=== PATIENT | female | born 1975 | race Two or more races ===

== ENCOUNTER 2018-05-02 09:10 | Emergency (ER) | payer OTHER ==
[2018-05-02 09:25] VITALS: BP 133/64
--- NOTE | 2018-05-02 09:36 | ED Physician Documentation ---
PD HPI HEENT - Stated complaint Stated Complaint: EAR ACHE - Chief complaint Chief Complaint: Heent - History obtained from History obtained from: Patient - Additional information Additional information: 42-year-old female presents the emergency department with bilateral ear pain, sore throat and URI symptoms. The patient's cold symptoms started several days ago and this morning the patient woke up with bilateral ear pain. The patient took Motrin and now her symptoms are improving. No reports of fevers. Symptoms are described as mild. No other associated symptoms. Review of Systems Constitutional: denies: Fever, Chills Eyes: denies: Discharge Ears: reports: Ear pain Nose: reports: Rhinorrhea / runny nose Throat: reports: Sore throat Cardiac: denies: Chest pain / pressure Respiratory: denies: Cough GI: denies: Abdominal Pain : denies: Dysuria PD PAST MEDICAL HISTORY - Present Medications Home Medications: Ambulatory Orders Medication Instructions Recorded Confirmed Pseudoephedrine HCl [Sudafed 12 120 mg PO BID PRN #30 tablet.er 05/02/18 Hour] - Allergies Allergies/Adverse Reactions: Allergies Allergy/AdvReac Type Severity Reaction Status Date / Time No Known Drug Allergies Allergy Verified 05/02/18 09:23 PD ED PE NORMAL - General General: Alert and oriented X 3, No acute distress - HEENT HEENT: Atraumatic, PERRL, EOMI - Cardiac Cardiac: RRR - Respiratory Respiratory: No respiratory distress - Derm Derm: Normal color - Extremities Extremities: No deformity - Neuro Neuro: Alert and oriented X 3, Normal speech - Psych Psych: Normal affect PD ED PE EXPANDED - HEENT HEENT: Atraumatic, Head injury, Ears normal, Rhinorrhea, Pharynx normal. No: R TM red, R TM dull, R TM bulging, R TM retracted, R TM loss of landmarks, L TM red, L TM dull, L TM bulging, L TM retracted, L TM loss of landmarks, Pharyngeal erythema, Swollen tonsils, Tonsillar exudate Results - Vitals Vitals: Vital Signs - 24 hr 05/02/18 09:23 Temperature 36.4 C L Heart Rate 89 Respiratory 16 Rate Blood Pressure 133/64 H O2 Saturation 100 Oxygen O2 Source Room air PD MEDICAL DECISION MAKING - ED course ED course: There is no clinical evidence of acute otitis media, the patient's symptoms seem to represent a viral etiology and the patient appears appropriate for outpatient management with symptomatic treatment. I discussed the findings and plan with the patient who understands and agrees. I discussed warning signs and recommended returning to the emergency department immediately for any worsening or any concerns. Departure - Departure Disposition: Home, Self Care Clinical Impression: Otalgia of both ears, Viral URI Condition: Good Instructions: ED URI Viral Follow-Up: RADHA HAYWOOD MD [Primary Care Provider] - Within 1 week Prescriptions: Pseudoephedrine HCl [Sudafed 12 Hour] 120 mg PO BID PRN #30 tablet.er PRN Reason: Cold Symptons Comments: Please follow-up with primary care in 1 week. Please return to the emergency department for worsening symptoms or any concerns
== END 2018-05-02 09:43 | disposition home or self-care (01) ==
LOC: ED 09:10
DX: H92.03 Otalgia, bilateral (principal); J06.9 Acute upper respiratory infection, unspecified; B97.89 Other viral agents as the cause of diseases classified elsewhere
CPT/HCPCS: 99282; 99283

== ENCOUNTER 2018-09-02 03:06 | Emergency (ER) | payer OTHER ==
[2018-09-02 03:17] VITALS: BP 137/86
--- NOTE | 2018-09-02 03:35 | ED Physician Documentation ---
PD HPI HEENT - Stated complaint Stated Complaint: EAR PX - Chief complaint Chief Complaint: Heent - History obtained from History obtained from: Patient - History of Present Illness Timing - onset: Yesterday Timing - details: Gradual onset, Constant, Waxing and waning Pain level now: 8 Location: Right ear Improves: Nothing Worsens: Position Associated symptoms: Fever (had chills, sweats, and fever Tmax 103 past several days, but resolved yesterday as the ear pain started) Similar symptoms before: Has not had sx before Recently seen: Not recently seen Review of Systems Constitutional: reports: Fever (past several days but no fever for past 24 hours), Chills, Sweats Ears: reports: Ear pain Throat: denies: Sore throat PD PAST MEDICAL HISTORY - Past Medical History Past Medical History: No - Past Surgical History Past Surgical History: No - Present Medications Home Medications: Ambulatory Orders Medication Instructions Recorded Confirmed Amox/Clav 875/125 [Augmentin] 1 each PO Q12H #14 tablet 09/02/18 HYDROcod/ACETAM 5/325 [[place] 5/325] 1 - 2 ea PO Q6H PRN #15 tablet 09/02/18 - Allergies Allergies/Adverse Reactions: Allergies Allergy/AdvReac Type Severity Reaction Status Date / Time No Known Drug Allergies Allergy Verified 09/02/18 03:17 - Social History Does the pt smoke?: No Smoking Status: Never smoker Does the pt drink ETOH?: No Does the pt have substance abuse?: No - Immunizations Immunizations are current?: Yes PD ED PE NORMAL - Vitals Vital signs reviewed: Yes - General General: Alert and oriented X 3, No acute distress, Well developed/nourished - Neck Neck: Supple, no meningeal sign PD ED PE EXPANDED - HEENT HEENT: R TM red, R TM bulging, R TM loss of landmarks, L TM red (mild erythema) Results - Vitals Vitals: Oxygen O2 Source Room air PD MEDICAL DECISION MAKING - ED course Complexity details: considered differential, d/w patient Departure - Departure Disposition: 01 Home, Self Care Clinical Impression: Otitis media Condition: Good Instructions: ED Otitis Media Acute Adult Follow-Up: RADHA HAYWOOD MD [Primary Care Provider] - Prescriptions: Amox/Clav 875/125 [Augmentin] 1 each PO Q12H #14 tablet HYDROcod/ACETAM 5/325 [[place] 5/325] 1 - 2 ea PO Q6H PRN #15 tablet PRN Reason: Pain Discharge Date/Time: 09/02/18 03:46
[2018-09-02] MEDS ORDERED: DEXAMETHASONE 10 MG/ML VIAL PO STA (03:36)
[2018-09-02] MEDS ORDERED: AMOX/CLAV 875 MG/125 MG TABLET PO STA (03:36)
[2018-09-02] MEDS ORDERED: HYDROcod/ACET 5/325 Prepack 4 PO STA (03:36)
[2018-09-02] MEDS ORDERED: CHERRY SYRUP 10 ML UDC PO ONE (03:43)
== END 2018-09-02 03:46 | disposition home or self-care (01) ==
LOC: ED 03:06
DX: H66.90 Otitis media, unspecified, unspecified ear (principal)
CPT/HCPCS: 99283; A9270

== ENCOUNTER 2018-10-09 07:35 | Outpatient (CLI) | payer OTHER ==
--- NOTE | 2018-10-09 10:33 | MRI Report ---
Reason: LESION OF ULNAR NERVE, RIGHT UPPER LIMB Procedure Date: 10/09/2018 Accession Number: [id number] / [id number] Procedure: MRI - Cervical Spine W/O CPT Code: FULL RESULT: EXAM: MRI CERVICAL SPINE WITHOUT CONTRAST EXAM DATE: 10/09/2018 07:52 AM. CLINICAL HISTORY: Lesion of ulnar nerve, right upper limb. COMPARISONS: None. TECHNIQUE: Multiplanar, multisequence T1-weighted and fluid-sensitive sequences of the cervical spine without contrast. Other: None. FINDINGS: Neurologic Structures: The visualized posterior fossa structures are unremarkable. No signal abnormality in the visualized spinal cord. Note, the cervical spinal canal is at the lower limits of normal in size. Alignment: No scoliosis or spondylolisthesis. Bone Marrow: No gross fractures or bone lesions. No marrow edema. Interspace Levels/Facets: C1-C2: Unremarkable on sagittal series. C2-C3: Mild broad-based dorsal disk bulge is seen. Focal dorsal and left dorsal lateral subligamentous disk protrusion is seen. Effacement and flattening of the thecal sac and spinal cord are seen slightly greater to the left of midline. Moderate canal stenosis. C3-C4: Minimal broad-based dorsal disk bulge is seen. Mild ventral disk bulge. Mild effacement of the ventral thecal sac is noted. Mild canal stenosis. C4-C5: Mild central dorsal subligamentous disk protrusion is seen. Anterior concavity to the thecal sac and spinal cord is noted. Mild canal stenosis. C5-C6: Broad-based dorsal subligamentous disk protrusion is seen. Central annular fissure is noted. Mild degenerative uncovertebral changes seen. Anterior concavity to the thecal sac and spinal cord is noted. Mild to moderate canal stenosis. Bilateral mild foraminal narrowing. C6-C7: Mild broad-based dorsal, lateral, and ventral circumferential disk bulge is seen. Effacement of the ventral thecal sac is noted without canal stenosis. Effacement of exiting left C7 nerve root is seen with mild foraminal stenosis. C7-T1: Unremarkable. Musculature: Normal. No edema or fatty atrophy. Other: The paravertebral and prevertebral soft tissues are normal. IMPRESSION: 1. The cervical spinal canal is at the lower limits of normal in size. Mild cervical spondylosis is seen with multilevel degenerative disk change. Associated multilevel stenosis is seen, including: -C2-C3: Moderate canal stenosis. -C3-C4, C4-C5: Mild canal stenosis. -C5-C6: Mild to moderate canal stenosis. Mild foraminal narrowing. -C6-C7: Mild left foraminal stenosis. 2. Normal appearance to the cervical spinal cord. RADIA
== END 2018-10-09 07:36 | disposition home or self-care (01) ==
LOC: DI 07:35
PROVIDERS: ATTEND Orthopaedic Surgery
DX: G56.21 Lesion of ulnar nerve, right upper limb (principal); M47.812 Spondylosis without myelopathy or radiculopathy, cervical region; M50.30 Other cervical disc degeneration, unspecified cervical region; M48.02 Spinal stenosis, cervical region
CPT/HCPCS: 72141

== ENCOUNTER 2018-11-28 08:38 | Day surgery (SDC) | payer OTHER ==
[2018-11-28] MEDS ORDERED: LACTATED RINGERS 1,000 ML IV ONE ×2 (08:49→13:33)
[2018-11-28] MEDS ORDERED: VANCOMYCIN INJ 1 GM, VANCOMYCIN INJ 250 MG in SODIUM CHLORIDE 0.9% 250 ML IV ONE (09:00)
[2018-11-28] MEDS ORDERED: CEFAZOLIN SODIUM IN 0.9 % NACL 2 GM/100 ML BAG IV ONE (09:24)
--- NOTE | 2018-11-28 09:31 | ANESTHESIA ---
Pre-Anesthesia VS, & Labs - Diagnosis R cubital tunnel syndrome - Procedure R ulnar nerve transposition, R CTR Vital Signs: Temp Pulse Resp BP Pulse Ox 36.3 C L 69 12 125/95 H 100 11/28/18 09:00 11/28/18 09:00 11/28/18 09:00 11/28/18 09:00 11/28/18 09:00 Height 5 ft Weight (kg) 80.3 kg Body Mass Index 34.3 - NPO >8 hours - Is Patient ?: No - Lab Results Lab results reviewed: Yes Home Medications and Allergies Active Medications Vancomycin HCl 1 gm/Vancomycin HCl 250 mg/ Sodium Chloride 250 mls @ 167 mls/hr IV ONCE ONE Stop: 11/28/18 10:29 No Known Home Medications 10/22/18 Allergies/Adverse Reactions: Allergies Allergy/AdvReac Type Severity Reaction Status Date / Time No Known Drug Allergies Allergy Verified 11/18/18 14:45 Anes History & Medical History - Anesthetic History Anesthesia Complications: reports: No previous complications Family history of Anesthesia Complications: Denies Family history of Malignant Hyperthermia: Denies - Medical History Cardiovascular: reports: Murmur Pulmonary: reports: None Gastrointestinal: reports: None Urinary: reports: None Neuro: reports: None Musculoskeletal: reports: Other Endocrine/Autoimmune: reports: None Blood Disorders: reports: None Skin: reports: None Smoking Status: Never smoker - Surgical History Gynecologic: section Orthopedic: Other Exam General: Alert, Oriented x3, Cooperative Dental: WNL Mouth Openin Fingerbreadth Neck Mobility: Normal Mallampati classification: II Thyromental Distance: 4-6 cm Respiratory: Lungs clear, Normal breath sounds Cardiovascular: Regular rate Neurological: Normal speech Mental/Cognitive Status: Alert/Oriented X3, Normal for patient Cognitive Status: Within normal limits Plan Anesthesia Type: General, Supraclavicular Block (possible if pt desires) Consent for Procedure(s) Verified and Reviewed: Yes Code Status: Attempt Resuscitation ASA classification: 2-Mild systemic disease Is this case an emergency?: No
[2018-11-28 09:47] LABS: HCG UR QUAL NEGATIVE
[2018-11-28] MEDS ORDERED: VANCOMYCIN INJ 1.25 GM in SODIUM CHLORIDE 0.9% 250 ML IV ONE (09:55)
[2018-11-28] MEDS ORDERED: BUPIVACAINE 0.25% PF 30 ML VIAL ONE (10:48)
[2018-11-28] MEDS ORDERED: BUPIVACAINE 0.25% PF 30 ML VIAL SUBQ ONE ×2 (11:49→15:37)
[2018-11-28] MEDS ORDERED: DEXAMETHASONE 4 MG/ML VIAL IVP ONE (13:15)
[2018-11-28] MEDS ORDERED: ACETAMINOPHEN 1,000 MG/100 ML 100 ML IV ONE (13:15)
[2018-11-28] MEDS ORDERED: LIDOCAINE-MPF 2% 5 ML VIAL IM ONE (13:15)
[2018-11-28] MEDS ORDERED: fentaNYL 100 MCG/2 ML VIAL IVP ONE (13:15)
[2018-11-28] MEDS ORDERED: PROPOFOL 200 MG/20 ML VIAL IVP ONE (13:15)
[2018-11-28] MEDS ORDERED: ONDANSETRON 4 MG/2 ML VIAL IVP ONE (13:15)
[2018-11-28] MEDS ORDERED: MIDAZOLAM 2 MG/2 ML VIAL IVP ONE (13:15)
[2018-11-28] MEDS ORDERED: KETOROLAC 30 MG/ML VIAL IVP ONE (13:15)
--- NOTE | 2018-11-28 14:36 | XRAY Report ---
Reason: Pre-op EVAL Procedure Date: 11/28/2018 Accession Number: [id number] / [id number] Procedure: XR - Elbow 3 View RT CPT Code: FULL RESULT: EXAM: RIGHT ELBOW RADIOGRAPHY EXAM DATE: 11/28/2018 09:24 AM. CLINICAL HISTORY: Pre-op EVAL. COMPARISON: None. TECHNIQUE: 3 views. FINDINGS: Bones: Normal. No fractures or bone lesions. Joints: Normal. No effusion. No subluxation. Soft Tissues: Normal. No soft tissue swelling. IMPRESSION: Normal elbow radiography. RADIA
--- NOTE | 2018-11-28 14:40 | XRAY Report ---
Reason: Pre-op eval Procedure Date: 11/28/2018 Accession Number: [id number] / [id number] Procedure: XR - Wrist 3 View RT CPT Code: FULL RESULT: EXAM: RIGHT WRIST RADIOGRAPHY EXAM DATE: 11/28/2018 09:24 AM. CLINICAL HISTORY: Pre-op eval. COMPARISON: None. TECHNIQUE: 4 views. FINDINGS: Bones: Normal. No fractures or bone lesions. Joints: Normal. No subluxations. Soft Tissues: Normal. No soft tissue swelling. IMPRESSION: Normal wrist radiography. RADIA
[2018-11-28] MEDS ORDERED: ONDANSETRON 4 MG/2 ML VIAL IVP PRN (16:09)
[2018-11-28] MEDS ORDERED: oxyCODONE 5 MG TABLET PO PRN (16:09)
--- NOTE | 2018-11-28 16:22 | OPERATIVE REPORT ---
Operative Report - General Procedure Date: 11/28/18 Planned Procedure: Right open carpal tunnel Release, Right cubital tunnel decompression possible anterior transposition Pre-Op Diagnosis: Right carpal tunnel syndrome, right cubital tunnel syndrome Procedure Performed: Right open carpal tunnel release, right ulnar nerve decompression with anterior sub-cutaneous transposition Post Op Diagnosis: Right carpal tunnel syndrome, right cubital tunnel syndrome - Procedure Note Primary Surgeon: ELIZABETH HAWLEY Anesthesia Technique: General LMA - Other Other Information/Narrative: Tourniquet Time: 142 minutes at 250mmHg. Specimen(s) Information: None Complication(s): None Condition: Stable to recovery Indications for Surgery: The patient is a 43-year-old right hand dominant female with a greater than 1 year history of numbness and tingling into the right upper extremity. Her right hand and arm symptoms began sometime in 2016. She initially reported numbness and tingling to the ulnar 2 digits of the right hand, as well as the ulnar forearm. This slowly progressed to involve all 5 digits. An EMG/nerve conduction study was conducted in January 2018 and demonstrated moderate median nerve compression at the carpal tunnel without electrodiagnostic evidence of cubital tunnel syndrome. She underwent right carpal tunnel steroid injection, with good improvement in both the carpal tunnel as well as cubital tunnel symptoms. Her symptoms began to recur in the spring 2018, once again starting with the ulnar 2 digits primarily numbness and paresthesias from the elbow into the ulnar 2 digits, with later pain in the same distribution, and sensitivity at the medial elbow. Her long,index and thumb numbness also began to return. Clinical exam demonstrated perching/subluxation of the ulnar nerve with elbow flexion. She had a positive Tinel at the cubital tunnel and just proximal to it, and her symptoms were re-created quickly with elbow flexion. She also had a positive Tinel at the carpal tunnel, with numbness rapidly provoked with Phalen and Durkan testing. Cervical spine MRI obtained during work-up of her condition demonstrated multilevel degenerative changes, that likely contribute to a double crush phenomenon with her upper extremity symptoms. The patient was evaluated by spine surgery at my request. She had undergone periods of elbow splinting and physical therapy, as well as a right carpal tunnel steroid injection, with no durable benefit from any nonoperative modality. We had extensive discussions in clinic about treatment options for both cubital and carpal tunnel syndrome, namely: continued nonoperative treatment in the form of activity modification, splinting, elbow pad wear versus versus surgical release of the carpal tunnel as well as decompression of the ulnar nerve and anterior subcutaneous transposition. Risks of surgery were discussed to include bleeding, infection, postoperative elbow stiffness, failure to relieve symptoms, damage to nerves (including specifically the MABC, the ulnar nerve, the median nerve, the recurrent motor branch to the thenars), vessels, tendons, ligaments, bone and cartilage and anesthesia complications to include medication side effects and allergic reactions and, stroke heart attack and even . After discussion, they wished to proceed. A written consent was signed Findings: Thickened transverse carpal ligament. Unstable ulnar nerve at the cubital tunnel, flattening of the ulnar nerve at the cubital tunnel with slight hourglass configurations Descriptions of Procedure: The patient was met in the Preoperative Holding Area, at which time preoperative paperwork was confirmed. The right wrist and right elbow was signed. The patient was then brought to Main Operating Room, placed supine on the Operating Room table, at which time a pre procedure timeout was conducted to confirm correct patient, correct extremity and correct procedure and also to confirm presence and sterility of all required equipment and to confirm that antibiotics were being administered in the form of 2g of intravenous Ancef, given a history of prior MRSA soft tissue infection preoperative vancomycin was also administered approximately 1 hour prior to incision. After this was confirmed, general anesthesia was induced. The operative extremity was then prepped and draped over a hand table in the normal sterile fashion. A sterile well-padded tourniquet was placed on the proximal arm. A final timeout was conducted to confirm the correct patient, correct extremity and correct procedure and to confirm that antibiotics had been administered within 30 minutes of incision time. The operative extremity was then exsanguinated with an Esmarch bandage and tourniquet inflated to 250mmHg. Melendrez's cardinal line, the ulnar border of the flexed fourth digit, and the hook of hamate was marked on the hand. A 3cm longitudinal incision was made with a #15 blade through skin and subcutaneous tissue. Dissection was further carried out with tenotomy scissors. Small crossing vessels were coagulated with bipolar electrocautery, the palmar fascia was exposed, and split longitudinally in line with its fibers, the fat was retracted ulnarly, and the transverse carpal ligament was exposed. A 15 blade was used to make a small incision in the transverse carpal ligament, and then a small mosquito clamp was introduced directly deep to the ligament above the contents of the carpal tunnel to gently free off any adhesions between the deep surface of the transverse carpal ligament and the median nerve. Dissection was carried distally under direct visualization, releasing the transverse carpal ligament until the palmar fat was was visualized. Digital examination was performed to ensure that there were no remaining tight bands constricting the nerve. Attention was then turned proximally, and a Sawyer elevator was passed deep to the transverse carpal ligament and antebrachial fascia, and these were incised in line with the nerve approximately 2 cm proximal to the distal wrist crease. This was performed under direct visualization. Again digital examination of the proximal extent of the release was performed to ensure no tight bands or constrictive points remained over the nerve. Satisfied that the carpal tunnel had been completely released, the wound was irrigated, and packed with a wet Raytec. Attention was then turned to the ulnar nerve decompression. An approximately 14 cm longitudinal incision was made centered posterior to the tip of the medial epicondyle proceeding distally approximately 6 cm and proximally 8 cm in line with the course of the ulnar nerve. The skin and dermis were sharply incised, followed by blunt dissection with tenotomy scissors through through through the subcutaneous fat. Care was taken to identify any crossing branches of the medial antebrachial and brachial cutaneous nerve. Three branches were identified and protected. The incision was carried deep, and Austin's ligament overlying the cubital tunnel was sharply incised, revealing the ulnar nerve. The nerve was grossly unstable within the cubital tunnel with with easy anterior subluxation with elbow flexion. Following release of the cubital tunnel, the dissection proceeded proximally and distally, circumfrentially dissecting the soft tissue attachments of the ulnar nerve. Care was taken to identify the first sensory branch to the medial elbow capsule as well as the motor branchs to the FCU these were neuolysed both proximally and distally into the muscle to allow for improved excursion. Proximally the nerve was circumferentially freed to the point where the nerve transitions from anterior to posterior compartment, and segment of the medial intermuscular septum was excised. At this point, the tourniquet was let down due to time and a wet laparotomy sponge was placed in the wound. Gentle direct pressure was held for five minutes. Bipolar electrocautery was used to obtain hemostasis. Attention was directed to the carpal tunnel incision where a similar technique was used. Once hemostasis was ensured, the carpal tunnel incision was closed using 4-0 nylon interrupted horizontal mattress stitches. Attention was again turned to the elbow and satisfied that the nerve been adequately freed, it was placed anterior to the medial epicondyle in a robust soft tissue bed on the flexor pronator mass and gently wrapped with a layer of adipose tissue that had been dissected from the deep surface of the anterior skin flap. The elbow was taken through full range of motion to ensure no new points of kinking or compression as well as to verify gliding mobility of the nerve. Satisfied that the nerve was not tethered or kinked in any way, a 1 cm x 1 cm proximally based fascial flap was raised from the medial epicondyle and secured to the anterior flap using 0 Vicryl in horizontal mattress fashion. This created a nice supportive sling for the ulnar nerve, and acted as a check- rein to posterior translation. This was loose enough to allow passage of my finger along the nerve after closure. The arm was again taken through full range of motion and the ulnar nerve was noted to be free of tension, with good gliding. The wound was copiously irrigated and again hemostasis was confirmed. Bipolar bipolar cautery was used to coagulate any bleeding points. The wound was again irrigated and the subcutaneous tissue was closed using 3-0 Vicryl in interrupted fashion, followed by a running subcuticular 3-0 monocryl. Several 3-0 nylon horizontal mattress stitches were used to improve skin edge approximation. 30cc of 0.25% marcain plain were injected around the wrist and elbow incisions. Mastisol and sterstrips were used on the elbow incision. The wounds were then dressed with Xeroform, plain 4x4 gauze, followed by webril, pound cotton, and a compressive Aung wrap. The patient was then awakened from general anesthesia without complication, brought to the Post Anesthesia Care for further recovery. Post-operatively the patient endorsed sensation in all digits. Postoperative Plan: 1. The patient will be discharged from the Same Day Surgery Unit when discharge criteria are met. 2. The patient will remain in a compressive soft dressing until follow-up, this will be removed in clinic. 3. Patient can start gentle elbow range of motion on postoperative day 1-2 as his pain allows, to facilitate nerve gliding. 4. Expect return to full duty in 12 weeks.
[2018-11-28] MEDS: fentaNYL 100 MCG/2 ML VIAL ONE ×2 (16:41→16:47)
[2018-11-28] MEDS ORDERED: ONDANSETRON 4 MG/2 ML VIAL ONE (17:18)
[2018-11-28] MEDS ORDERED: PROMETHAZINE 25 MG/1 ML VIAL ONE (18:09)
[2018-11-28 19:17] VITALS: BP 114/54
== END 2018-11-28 19:35 | disposition home or self-care (01) ==
LOC: SDS 08:38 → MS2 17:58 → SDS 19:35
PROVIDERS: ATTEND Orthopaedic Surgery
PROC: 01N50ZZ Release Median Nerve, Open Approach (ICD-10-PCS; principal; 2018-11-28 10:30)
PROC: 01S40ZZ Reposition Ulnar Nerve, Open Approach (ICD-10-PCS; 2018-11-28 10:30)
DX: G56.01 Carpal tunnel syndrome, right upper limb (principal); G56.21 Lesion of ulnar nerve, right upper limb; M47.812 Spondylosis without myelopathy or radiculopathy, cervical region; Z86.14 Personal history of Methicillin resistant Staphylococcus aureus infection; Z87.891 Personal history of nicotine dependence
CPT/HCPCS: 64718; 64721; 73080; 73110; 81025; A9270; J0131; J0690; J3370; J7120

== ENCOUNTER 2019-02-13 12:41 | Outpatient (CLI) | payer OTHER ==
--- NOTE | 2019-02-13 13:54 | Mammography Report ---
Reason: RT BREAST LUMP Procedure Date: 02/13/2019 Accession Number: [id number] / [id number] Procedure: KAYLA - Diagnostic Dig Bilat CPT Code: FULL RESULT: EXAM: Diagnostic Dig Bilat DATE: 02/13/2019 1:20 PM CLINICAL HISTORY: Diagnostic examination. History of breast augmentation with change in shape of the right breast. Breast lump. TECHNIQUE: (B) - Bilateral CC and MLO views were obtained. Views are obtained in implant displaced and standard technique. A right laterally exaggerated CC views also obtained. COMPARISON: None PARENCHYMAL PATTERN: (D) - The breast(s) demonstrate(s) heterogeneously dense fibroglandular parenchyma. FINDINGS: There are bilateral prepectoral saline implants. The right implant is ruptured. There are no suspicious masses, calcifications, or areas of distortion. IMPRESSION: Benign findings. BI-RADS category 2. RECOMMENDATION: (ANNUAL) - Recommend routine annual screening mammography. BI-RADS CATEGORY: (2) - Benign Findings. STANDARD QUALIFYING STATEMENTS: 1. This examination was not reviewed with the aid of Computer-Aided Detection (CAD). 2. A negative or benign imaging report should not preclude biopsy if clinically suspicious findings are present. 3. Dense breasts may obscure an underlying neoplasm. 4. This examination was reviewed with the aid of 3D breast imaging (tomosynthesis).
== END 2019-02-13 12:42 | disposition home or self-care (01) ==
LOC: DI 12:41
PROVIDERS: ATTEND Internal Medicine
DX: R92.8 Other abnormal and inconclusive findings on diagnostic imaging of breast (principal)
CPT/HCPCS: 77062; 77066

== ENCOUNTER 2019-03-23 09:29 | Outpatient (CLI) | payer OTHER ==
--- NOTE | 2019-03-24 08:18 | MRI Report ---
Reason: RUPTURED BREAST IMPLANT Procedure Date: 03/23/2019 Accession Number: [id number] / [id number] Procedure: MRI - Breast W/O Con Bilat CPT Code: 92744 FULL RESULT: EXAM: Breast W/O Con Bilat DATE: 03/23/2019 10:32 AM CLINICAL HISTORY: RUPTURED BREAST IMPLANT TECHNIQUE: Noncontrast MRI of the breasts is performed with dedicated wrist coil on a high-field magnet. Axial STIR, left breast sagittal STIR and the right breast sagittal STIR as well as axial fat saturated T2 images are performed. COMPARISON: Mammogram dated 02/13/2019. FINDINGS: There are bilateral saline breast implants, retropectoral type. The left-sided implant is intact. The right implant is collapsed. The bilateral breast parenchyma demonstrates extent and distribution consistent with the mammographic observation of heterogeneously dense breasts. Visualized thorax, abdomen, and thoracic wall are within normal limits. No mass is seen on either side. IMPRESSION: Ruptured right-sided retropectoral saline breast implant. Benign findings. BI-RADS 2.
== END 2019-03-23 09:30 | disposition home or self-care (01) ==
LOC: DI 09:29
DX: T85.49XA Other mechanical complication of breast prosthesis and implant, initial encounter (principal)
CPT/HCPCS: 77047

== ENCOUNTER 2019-08-07 08:35 | Emergency (ER) | payer OTHER ==
[2019-08-07 08:48] VITALS: BP 142/79
--- NOTE | 2019-08-07 09:01 | ED Physician Documentation ---
History of Present Illness - Stated complaint Stated Complaint: LUMP ON R SIDE OF HEAD - Chief complaint Chief Complaint: Heent - History obtained from History obtained from: Patient - History of Present Illness Timing: Yesterday - Additonal information Additional information: 43-year-old female awoke yesterday morning with some pain to the right posterior aspect of her scalp. She felt that there was some swelling to the area and she does not have any trauma to the area. She noted that over the day the pain became worse and at night last night she was having a difficult time sleeping every time she rolled onto that side she was awakened with pain. She comes into the emergency department this morning afebrile with pain and swelling to the back of her scalp. She has not had this previously. 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 - Present Medications Home Medications: Ambulatory Orders Medication Instructions Recorded Confirmed Sulfamethoxazole/Trimethoprim 1 each PO BID #14 tablet 08/07/19 [Sulfamethoxazole-Tmp Ds Tablet] - Allergies Allergies/Adverse Reactions: Allergies Allergy/AdvReac Type Severity Reaction Status Date / Time No Known Drug Allergies Allergy Verified 11/18/18 14:45 - Social History Does the pt smoke?: No Smoking Status: Never smoker Does the pt drink ETOH?: No Does the pt have substance abuse?: No - Immunizations Immunizations are current?: Yes - POLST Patient has POLST: No PD ED PE NORMAL - Vitals Vital signs reviewed: Yes (hypertensive mild ) - General General: Alert and oriented X 3, No acute distress, Well developed/nourished - HEENT HEENT: Atraumatic, PERRL, EOMI, Other (There is mild swelling and slight erythema to the posterior scalp from the mastoid almost to the mid and occipital. There is no fluctuance. ) - Neck Neck: Supple, no meningeal sign, No bony TTP - Respiratory Respiratory: No respiratory distress - Derm Derm: Normal color, Warm and dry, No rash - Extremities Extremities: No deformity, No edema - Neuro Neuro: Alert and oriented X 3, flat examiner 2-12 intact, No motor deficit, No sensory deficit, Normal speech Eye Opening: Spontaneous Motor: Obeys Commands Verbal: Oriented GCS Score: 15 - Psych Psych: Normal mood, Normal affect Results - Vitals Vitals: Vital Signs - 24 hr 08/07/19 08:42 Temperature 36.9 C Heart Rate 72 Respiratory 18 Rate Blood Pressure 142/79 H O2 Saturation 99 Oxygen O2 Source Room air PD MEDICAL DECISION MAKING - ED course Complexity details: considered differential, d/w patient ED course: 43-year-old female with nonspecific swelling to the back of her scalp likely has an infection under the skin and she is placed on to some Septra. I was not able to elicit any history of trauma to the area. I have discussed with the patient expectations of a rapid recovery and I have asked the patient to use a warm compress. Departure - Departure Disposition: 01 Home, Self Care Clinical Impression: Abscess or cellulitis of scalp Condition: Stable Instructions: ED Infec Skin Cellulitis Follow-Up: SARAH CAST MD [Primary Care Provider] - Prescriptions: Sulfamethoxazole/Trimethoprim [Sulfamethoxazole-Tmp Ds Tablet] 1 each PO BID #14 tablet
== END 2019-08-07 09:12 | disposition home or self-care (01) ==
LOC: ED 08:35
DX: L02.811 Cutaneous abscess of head [any part, except face] (principal); L03.811 Cellulitis of head [any part, except face]
CPT/HCPCS: 99282; 99284

== ENCOUNTER 2021-02-07 08:02 | Outpatient (CLI) | payer OTHER ==
--- NOTE | 2021-02-07 13:06 | MRI Report ---
PROCEDURE: Cervical Spine W/O INDICATIONS: CERVICAL RADICULOPATHY TECHNIQUE: Noncontrast sagittal T1 spin echo and T2 fast spin echo, sagittal STIR, foraminal oblique sagittal T2 fast spin echo, and axial gradient echo or T2 fast spin echo through the cervical spine. COMPARISON: 10/09/2018. FINDINGS: Image quality: Excellent. Alignment and Curvature: There is normal bony alignment. Bone Marrow: Marrow demonstrates normal overall signal. Spinal Cord: Visualized spinal cord has normal size and signal. No cerebellar tonsillar herniation. Regional Soft Tissues: Prevertebral and paraspinous soft tissues are within normal limits. C2-C3: No spinal canal stenosis or neural foraminal narrowing. C3-C4: No spinal canal stenosis. Facet and uncovertebral hypertrophy contribute to mild neural fora shaheen narrowing. C4-C5: No spinal canal stenosis. Facet and uncovertebral hypertrophy contribute to mild bilateral ne ural foraminal narrowing. C5-C6: Posterior disc-osteophyte complex flattens the ventral cord slightly. Left uncovertebral spur ring produces mild neural foraminal narrowing. C6-C7: No spinal canal stenosis. Facet and uncovertebral hypertrophy. Mild bilateral foraminal narro wing. C7-T1: No spinal canal stenosis more neural foraminal narrowing. IMPRESSION: Mild to moderate neural foraminal narrowing on the left at C5-C6. Correlate for any corresponding lef t C6 radicular symptoms. Mild bilateral neural foraminal narrowing at C3-C4, C4-C5, and C6-C7. Findings have slightly progressed from the prior study. Reviewed by: Handy Perkins MD on 02/07/2021 1:05 PM PDT Approved by: Handy Perkins MD on 02/07/2021 1:05 PM PDT Station ID: [id number]
== END 2021-02-07 08:03 | disposition home or self-care (01) ==
LOC: DI 08:02
PROVIDERS: ATTEND Internal Medicine
DX: M47.22 Other spondylosis with radiculopathy, cervical region (principal)

== ENCOUNTER 2021-12-26 08:34 | Emergency (ER) | payer OTHER ==
[2021-12-26 09:00] VITALS: BP 137/85
--- NOTE | 2021-12-26 09:07 | ED Physician Documentation ---
History of Present Illness - Stated complaint Stated Complaint: COUGH - Chief complaint Chief Complaint: Resp - History obtained from History obtained from: Patient - Additonal information Additional information: Pt comes to the ED with CC of cough for the past 5 days. She had a fever on the first day, but none since. She also had aches and chills at that time, but these have also resolved. She states she has continued to have a lightly productive cough, which is worst at night and first thing in the morning, and seems to be triggered by a strong itch in her throat. She states the mild phlegm production is mainly first thing in the morning. No SOB. Neg covid test. Review of Systems Ten Systems: 10 systems reviewed and negative Constitutional: reports: Reviewed and negative Eyes: reports: Reviewed and negative Ears: reports: Reviewed and negative Nose: reports: Reviewed and negative Throat: reports: Reviewed and negative Cardiac: reports: Reviewed and negative Respiratory: reports: Cough GI: reports: Reviewed and negative : reports: Reviewed and negative Skin: reports: Reviewed and negative Musculoskeletal: reports: Reviewed and negative Neurologic: reports: Reviewed and negative Psychiatric: reports: Reviewed and negative Endocrine: reports: Reviewed and negative Immunocompromised: reports: Reviewed and negative PD PAST MEDICAL HISTORY - Past Medical History Cardiovascular: Murmur Respiratory: None Neuro: None Endocrine/Autoimmune: None GI: None 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 : None HEENT: None Psych: None Musculoskeletal: Other Derm: None - Past Surgical History Past Surgical History: No 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 - Present Medications Home Medications: Ambulatory Orders Medication Instructions Recorded Confirmed Benzonatate [Tessalon] 200 mg PO TID PRN #12 cap 12/26/21 Codeine Sulfate 30 mg PO Q6HR PRN #8 tablet 12/26/21 - Allergies Allergies/Adverse Reactions: Allergies Allergy/AdvReac Type Severity Reaction Status Date / Time No Known Drug Allergies Allergy Verified 11/18/18 14:45 - Social History Does the pt smoke?: No Smoking Status: Never smoker Does the pt drink ETOH?: No Does the pt have substance abuse?: No - Immunizations Immunizations are current?: Yes - POLST Patient has POLST: No PD ED PE NORMAL - Vitals Vital signs reviewed: Yes - General General: Alert and oriented X 3, No acute distress, Well developed/nourished - HEENT HEENT: Atraumatic, PERRL, EOMI, Moist mucous membranes - Neck Neck: Supple, no meningeal sign - Cardiac Cardiac: RRR, No murmur, Strong equal pulses - Respiratory Respiratory: No respiratory distress, Clear bilaterally, Other (Occasional cough with slight congestion.) - Abdomen Abdomen: Normal bowel sounds, Soft, Non tender, Non distended - Derm Derm: Warm and dry - Extremities Extremities: No deformity - Neuro Neuro: Alert and oriented X 3 - Psych Psych: Normal mood, Normal affect Results - Vitals Vitals: Oxygen O2 Source Room air PD MEDICAL DECISION MAKING - ED course Complexity details: considered differential, d/w patient ED course: Pt's sx were consistent with a resolving viral illness, and she was mainly here to get some relief from the cough. I have prescribed Tessalon and Codeine. She does not wish to have a viral panel or chest XR done today. We have discussed symptomatic management at home, as well as the usual indications for return. Departure - Departure Disposition: 01 Home, Self Care Clinical Impression: Viral syndrome Condition: Stable Instructions: ED Viral Syndrome Prescriptions: Codeine Sulfate 30 mg PO Q6HR PRN #8 tablet PRN Reason: Cough Benzonatate [Tessalon] 200 mg PO TID PRN #12 cap PRN Reason: Cough Comments: The symptoms you have been having for the last 5 days are most consistent with a viral illness. Given that overall, you have been gradually improving, you are most likely on the mend. However, the postnasal drip can inflame the nerves appear throat, which can create a very strong itch during the final stages of a viral illness and can create a strong urge to cough. This will get better on its own over the next few days. Your lung exam is clear, and your oxygen saturation in your blood is normal. There is no evidence of pneumonia or any other serious condition at this time. Your prescriptions have been electronically transmitted to [facility] pharmacy in [place]. Discharge Date/Time: 12/26/21 09:28
== END 2021-12-26 09:28 | disposition home or self-care (01) ==
LOC: ED 08:34
DX: B34.9 Viral infection, unspecified (principal)
CPT/HCPCS: 99282; 99284

== ENCOUNTER 2022-06-26 08:59 | Outpatient (CLI) | payer OTHER ==
--- NOTE | 2022-06-27 10:41 | Mammography Report ---
BILATERAL DIGITAL SCREENING MAMMOGRAM 3D/2D: 06/26/2022 CLINICAL: Routine screening. Comparison is made to exams dated: 02/13/2019 mammogram and 03/23/2019 breast MRI - [facility]. Both breasts are heterogeneously dense, which may obscure small masses (category c / 51-75% glandular tissue). There is an asymmetry with a spiculated margin in the right breast anterior depth central to the nipp le seen on the craniocaudal view only. No other significant masses, calcifications, or other findings are seen in either breast. IMPRESSION: INCOMPLETE: NEEDS ADDITIONAL IMAGING EVALUATION The asymmetry in the right breast is indeterminate. Additional views with possible ultrasound are re commended. Based on Tyrer-Cuzick model (a risk assessment model), the patient's lifetime risk is 20.5% and her 1 0 year risk is 4.1%. If a patient has an elevated risk, a more comprehensive evaluation should be con sidered and/or a referral to a genetic counselor. The [place] [employer], [employer], and NCCN Guidelines advise the consideration of Breast MRI as an adjunct to screening mammog hemanth in patients whose "Lifetime risk to develop breast cancer" is 20% or higher. This exam was interpreted at Station ID: [id number]. NOTE: For mammograms, a report in lay terms will be sent to the patient. Approximately 15% of breast malignancies will not be visualized mammographically. In the management of a palpable breast mass, a negative mammogram must not discourage biopsy of a clinically suspicious lesion. Electronically Signed By: Brian Bowers M.D. acr/:06/26/2022 16:22:12 ACR BI-RADS Category 0: Incomplete 3340F PARENCHYMAL PATTERN: (D) - The breast(s) demonstrate(s) heterogeneously dense fibroglandular parenchy ma. BI-RADS CATEGORY: (0) - 0 Mammo and [place] [id number] Immediate follow-up LATERALITY: (R)
== END 2022-06-26 09:00 | disposition home or self-care (01) ==
LOC: DI 08:59
PROVIDERS: ATTEND Family Medicine
DX: Z12.31 Encounter for screening mammogram for malignant neoplasm of breast (principal); R92.8 Other abnormal and inconclusive findings on diagnostic imaging of breast

== ENCOUNTER 2022-07-12 12:31 | Outpatient (CLI) | payer OTHER ==
--- NOTE | 2022-07-13 12:50 | Mammography Report ---
UNILATERAL RIGHT DIGITAL DIAGNOSTIC MAMMOGRAM 3D/2D WITH SPOT COMPRESSION: 07/12/2022 CLINICAL: Patient returns today to evaluate an asymmetry in the right breast. Comparison is made to exams dated: 06/26/2022 mammogram, 02/13/2019 mammogram, and 03/23/2019 breast M [facility]. The right breast is heterogeneously dense, which may obscure small masses (category c / 51-75% glandu lar tissue). The asymmetry in the right breast anterior depth central to the nipple seen on the craniocaudal view only is no longer seen and most likely is fibroglandular tissue. This is not seen in additional view s. No other significant masses or calcifications are seen in the breast. IMPRESSION: PROBABLY BENIGN A follow-up mammogram in 6 months is recommended to confirm the no longer seen asymmetry in the right breast anterior depth central to the nipple seen on the craniocaudal view only. A follow-up mammogram in 6 months is recommended to demonstrate stability. Based on Tyrer-Cuzick model (a risk assessment model), the patient's lifetime risk is 23.2% and her 1 0 year risk is 4.8%. If a patient has an elevated risk, a more comprehensive evaluation should be con sidered and/or a referral to a genetic counselor. The [place] [employer], [employer], and NCCN Guidelines advise the consideration of Breast MRI as an adjunct to screening mammog hemanth in patients whose "Lifetime risk to develop breast cancer" is 20% or higher. This exam was interpreted at Station ID: [id number]. NOTE: For mammograms, a report in lay terms will be sent to the patient. Approximately 15% of breast malignancies will not be visualized mammographically. In the management of a palpable breast mass, a negative mammogram must not discourage biopsy of a clinically suspicious lesion. Electronically Signed By: Handy Perkins M.D., jr/anand:07/12/2022 13:01:27 ACR BI-RADS Category 3: Probably benign 3343F PARENCHYMAL PATTERN: (D) - The breast(s) demonstrate(s) heterogeneously dense fibroglandular parenchy ma. BI-RADS CATEGORY: (3) - 3 Mammogram [id number] 6 month follow-up LATERALITY: (B)
== END 2022-07-12 12:32 | disposition home or self-care (01) ==
LOC: DI 12:31
PROVIDERS: ATTEND Family Medicine
DX: R92.8 Other abnormal and inconclusive findings on diagnostic imaging of breast (principal)

== ENCOUNTER 2023-01-25 08:42 | Outpatient (CLI) | payer OTHER ==
--- NOTE | 2023-01-28 11:59 | Mammography Report ---
UNILATERAL RIGHT DIGITAL DIAGNOSTIC MAMMOGRAM 3D/2D: 01/25/2023 CLINICAL: Patient returns for a 6 month follow up of the right breast. Comparison is made to exams dated: 07/12/2022 mammogram, 06/26/2022 mammogram, and 02/13/2019 mammogra m - [facility]. The right breast is heterogeneously dense, which may obscure small masses (category c / 51-75% glandu lar tissue). The irregular asymmetry in the right breast anterior depth central to the nipple previously seen on t he craniocaudal view only is less prominent and not seen in additional views on the current study. No other significant masses or calcifications are seen in the breast. IMPRESSION: PROBABLY BENIGN The irregular asymmetry in the right breast is less prominent on the current study, most likely is fi broglandular tissue, and is probably benign. A follow-up right mammogram in 6 months is recommended to demonstrate continued stability. The patie nt will be due for bilateral mammograms at that same visit. Findings and recommendations were conveye d to the patient at time of exam. Based on Tyrer-Cuzick model (a risk assessment model), the patient's lifetime risk is 23.3% and her 1 0 year risk is 5.0%. If a patient has an elevated risk, a more comprehensive evaluation should be con sidered and/or a referral to a genetic counselor. The [place] [employer], [employer], and NCCN Guidelines advise the consideration of Breast MRI as an adjunct to screening mammog hemanth in patients whose "Lifetime risk to develop breast cancer" is 20% or higher. This exam was interpreted at Station ID: [id number]. NOTE: For mammograms, a report in lay terms will be sent to the patient. Approximately 15% of breast malignancies will not be visualized mammographically. In the management of a palpable breast mass, a negative mammogram must not discourage biopsy of a clinically suspicious lesion. Electronically Signed By: Hilda perez/:01/25/2023 09:59:26 ACR BI-RADS Category 3: Probably benign 3343F PARENCHYMAL PATTERN: (D) - The breast(s) demonstrate(s) heterogeneously dense fibroglandular wilmar alvarez. BI-RADS CATEGORY: (3) - 3 Mammogram [id number] 6 month follow-up LATERALITY: (R)
== END 2023-01-25 08:43 | disposition home or self-care (01) ==
LOC: DI 08:42
PROVIDERS: ATTEND Internal Medicine
DX: R92.8 Other abnormal and inconclusive findings on diagnostic imaging of breast (principal)

== ENCOUNTER 2023-08-30 08:35 | Outpatient (CLI) | payer OTHER ==
--- NOTE | 2023-09-02 10:13 | Mammography Report ---
BILATERAL DIGITAL DIAGNOSTIC MAMMOGRAM 3D/2D: 08/30/2023 CLINICAL: Patient returns for a 6 month follow up of the right breast, due for bilateral exam. Comparison is made to exams dated: 01/25/2023 mammogram, 07/12/2022 mammogram, 06/26/2022 mammogram, a nd 02/13/2019 mammogram - [facility]. Both breasts are heterogeneously dense, which may obscure small masses (category c / 51-75% glandular tissue). There is architectural distortion in the right breast anterior depth central to the nipple seen on th e craniocaudal view only. This is seen in additional views. No other significant masses, calcifications, or other findings are seen in either breast. IMPRESSION: INCOMPLETE: NEEDS ADDITIONAL IMAGING EVALUATION The architectural distortion in the right breast is indeterminate. A targeted ultrasound of the righ t breast is recommended and will be performed immediately following this exam. Based on Tyrer-Cuzick model (a risk assessment model), the patient's lifetime risk is 23.3% and her 1 0 year risk is 5.0%. If a patient has an elevated risk, a more comprehensive evaluation should be con sidered and/or a referral to a genetic counselor. The [place] [employer], [employer], and NCCN Guidelines advise the consideration of Breast MRI as an adjunct to screening mammog hemanth in patients whose "Lifetime risk to develop breast cancer" is 20% or higher. This exam was interpreted at Station ID: [id number]. NOTE: For mammograms, a report in lay terms will be sent to the patient. Approximately 15% of breast malignancies will not be visualized mammographically. In the management of a palpable breast mass, a negative mammogram must not discourage biopsy of a clinically suspicious lesion. Electronically Signed By: Aislinn Medrano M.D. lk/:08/30/2023 11:08:46 ACR BI-RADS Category 0: Incomplete 3340F PARENCHYMAL PATTERN: (D) - The breast(s) demonstrate(s) heterogeneously dense fibroglandular parenchy ma. BI-RADS CATEGORY: (0) - 0 Ultrasound [id number] Immediate follow-up LATERALITY: (B)
--- NOTE | 2023-09-02 10:13 | Ultrasound Report ---
LIMITED ULTRASOUND OF RIGHT BREAST AND AXILLA: 08/30/2023 CLINICAL: Patient returns today to evaluate an architectural distortion in the right breast. Comparison is made to exams dated: 08/30/2023 mammogram, 01/25/2023 mammogram, 07/12/2022 mammogram, mammogram, 03/23/2019 breast MRI, and 02/13/2019 mammogram - [facility]. Color flow and real-time ultrasound of the right breast 12 o'clock, and axilla regions were performed on the areas of interest. Alvarez scale images of the real-time examination were reviewed. There is an irregular mass in the right breast at 12 o'clock anterior depth. This irregular mass is hypoechoic. This correlates with mammography findings. The right axilla was interogated and normal appearing lymph nodes are visualized. IMPRESSION: SUSPICIOUS OF MALIGNANCY No right axillary adenopathy. The irregular mass in the right breast is at a low suspicion for malignancy. An ultrasound guided bi opsy is recommended. This exam was interpreted at Station ID: [id number]. SUMMARY: This was discussed with the patient by the radiologist at the time of the exam. Electronically Signed By: Aislinn Medrano M.D. lk/:08/30/2023 11:10:05 Ultrasound BI-RADS: 4a Low suspicion for malignancy BI-RADS CATEGORY: (4a) - Low Susp RECOMMENDATION: (ADDMAM) - Recommend additional mammographic views. no recall LATERALITY: (B)
== END 2023-08-30 08:36 | disposition home or self-care (01) ==
LOC: DI 08:35
PROVIDERS: ATTEND Family Medicine
DX: R92.333 Mammographic heterogeneous density, bilateral breasts (principal); N63.15 Unspecified lump in the right breast, overlapping quadrants

== ENCOUNTER 2023-09-12 09:43 | Outpatient (CLI) | payer OTHER ==
--- NOTE | 2023-09-16 09:58 | Ultrasound Report ---
LIMITED ULTRASOUND OF RIGHT BREAST: 09/12/2023 CLINICAL: Patient returns today to evaluate a focal asymmetry in the right breast. Comparison is made to exams dated: 08/30/2023 ultrasound, 08/30/2023 mammogram, 01/25/2023 mammogram, 07/01 mammogram, and 06/26/2022 mammogram - [facility]. Real-time ultrasound of the right breast 12 o'clock region was performed. Alvarez scale images of the r eal-time examination were reviewed. The previously described irregular mass in the right breast at 12 o'clock anterior depth is not seen on today's pre-biopsy scanning by the surgical first assistant or the radiologist. No other significant abnormalities were seen sonographically in the right breast. IMPRESSION: INCOMPLETE: NEEDS ADDITIONAL IMAGING EVALUATION The previously described irregular mass in the right breast 12 o'clock anterior depth could not be re produced today to confidently target for biopys. It was only seen on craniocaudal view on prior imagi ng. A right mammogram will be performed immediately after this exam to see if a targetable lesion can be biopsied under tomosynthesis guidance. This exam was interpreted at Station ID: Unknown. Electronically Signed By: Donte Sotomayor M.D. aty/:09/12/2023 18:41:59 Ultrasound BI-RADS: 0 Indeterminate BI-RADS CATEGORY: (0) - 0 RECOMMENDATION: (ADDMAM) - Recommend additional mammographic views. [id number] Immediate follow-up LATERALITY: (R)
--- NOTE | 2023-09-16 09:58 | Mammography Report ---
UNILATERAL RIGHT DIGITAL DIAGNOSTIC MAMMOGRAM 3D/2D WITH SPOT COMPRESSION: 09/12/2023 CLINICAL: Additional evaluation requested from prior study. Comparison is made to exams dated: 09/12/2023 ultrasound, 08/30/2023 mammogram, 01/25/2023 mammogram, 05/2023 mammogram, and 06/26/2022 mammogram - [facility]. The right breast is heterogeneously dense, which may obscure small masses (category c / 51-75% glandu lar tissue). The possible architectural distortion in the right breast anterior depth central to the nipple seen o n the craniocaudal view only is no longer seen and resembles fibroglandular tissue. This is not seen in additional views and demonstrate no correlate on today's and previous ultrasounds with the except ion of 08/30/2023 evaluation which described an irregular mass near the 12 o'clock anterior depth. This could not be reproduced today and the ultrasound guided biopsy was terminated. No other significant masses or calcifications are seen in the breast. IMPRESSION: PROBABLY BENIGN No definite mammographic or sonographic target for biopsy seen today for previously described asymmet ry/architectural distortion in the right breast at 12 o'clock anterior depth. This is a probably benign finding. Given patient's elevated lifetime risk of breast cancer of 23%, a screening bilateral breast MRI is r ecommended. If any suspicious abnormalities are noted in the right breast to correlate with mammograp hic finding of interest, then a biopsy under MRI guidance can be considered at that time. Findings and recommendations were discussed with the patient by Dr. Berrios. Based on Tyrer-Cuzick model (a risk assessment model), the patient's lifetime risk is 23.3% and her 1 0 year risk is 5.0%. If a patient has an elevated risk, a more comprehensive evaluation should be con sidered and/or a referral to a genetic counselor. The [place] [employer], [place] [employer], and NCCN Guidelines advise the consideration of Breast MRI as an adjunct to screening mammog hemanth in patients whose "Lifetime risk to develop breast cancer" is 20% or higher. This exam was interpreted at Station ID: Unknown. NOTE: For mammograms, a report in lay terms will be sent to the patient. Approximately 15% of breast malignancies will not be visualized mammographically. In the management of a palpable breast mass, a negative mammogram must not discourage biopsy of a clinically suspicious lesion. Electronically Signed By: Donte Sotomayor M.D. aty/:09/12/2023 18:50:12 ACR BI-RADS Category 3: Probably benign 3343F PARENCHYMAL PATTERN: (D) - The breast(s) demonstrate(s) heterogeneously dense fibroglandular parenchy ma. BI-RADS CATEGORY: (3) - 3 MRI recall n/a LATERALITY: (B)
== END 2023-09-12 09:44 | disposition home or self-care (01) ==
LOC: DI 09:43
PROVIDERS: ATTEND Family Medicine
DX: R92.8 Other abnormal and inconclusive findings on diagnostic imaging of breast (principal); R92.331 Mammographic heterogeneous density, right breast

== ENCOUNTER 2023-10-03 13:13 | Outpatient (CLI) | payer OTHER ==
--- NOTE | 2023-10-03 17:02 | MRI Report ---
PROCEDURE: Knee RT WO INDICATIONS: KNEE PAIN TECHNIQUE: Noncontrast sagittal PD fast spin echo and T2 fast spin echo with fat saturation, sagittal 3-D gradie nt sequence with fat saturation; coronal T1 spin echo and PD fast spin echo with fat saturation, and axial PD fast spin echo with fat saturation through the knee. COMPARISON: None. FINDINGS: Image quality: Excellent. Menisci: Subtle oblique tear involving medial periphery of posterior horn medial meniscus extending t o inferior articulating surface concerning for very subtle oblique tear in this area. The lateral men iscus is intact. The meniscal root ligaments appear intact. Cruciate ligaments: The anterior and posterior cruciate ligaments appear intact. Medial structures: The medial collateral ligament appears thickened at its femoral insertion. Visual ized portions of the pes anserinus tendons appear normal. No abnormal bursal fluid. Lateral structures: The lateral collateral ligament is thickened at its femoral insertion. The long and short heads of the biceps femoris tendon appear intact. The popliteus tendon appears normal. Tawny otibial band appears normal. Anterior structures: The quadriceps and patellar tendons appear intact. Patellar alignment is nithya l. Mild edema within the infrapatellar fat pad. Bones and cartilage: No bone marrow contusions or fractures. [id number] tricompartmental osteo arthritis and chondromalacia is seen most notably in patellofemoral compartment with moderate to high -grade chondromalacia involving apex and medial facet of patella cartilage. Joint space: There is small to moderate knee joint fluid. There is a popliteal cyst measures up to 2 .5 x 1.6 x 4.7 cm in size. Suggestion of loose body within the popliteal cyst measures 8 mm in size. Normal appearing synovial plicae are incidentally noted. IMPRESSION: 1. Suggestion of very subtle oblique tear involving medial periphery of posterior horn medial meniscu s extending to inferior articulating surface. The lateral meniscus is intact. 2. The cruciate ligaments are intact. 3. Low-grade proximal MCL and LCL sprain. 4. 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 No fracture or dislocation. Small to moderate joint effusion and a popli teal cyst containing 8 mm loose body as above. Reviewed by: Stewart Reynoso MD on 10/03/2023 5:00 PM PDT Approved by: Stewart Reynoso MD on 10/03/2023 5:00 PM PDT Station ID: [id number]
== END 2023-10-03 13:14 | disposition home or self-care (01) ==
LOC: DI 13:13
PROVIDERS: ATTEND Family Medicine
DX: S83.411A Sprain of medial collateral ligament of right knee, initial encounter (principal); S83.421A Sprain of lateral collateral ligament of right knee, initial encounter; M17.11 Unilateral primary osteoarthritis, right knee; M94.261 Chondromalacia, right knee; M25.461 Effusion, right knee; M71.21 Synovial cyst of popliteal space [Baker], right knee

== ENCOUNTER 2023-10-15 08:21 | Emergency (ER) | payer OTHER ==
[2023-10-15 08:37] VITALS: BP 144/82; O2SAT 100
--- NOTE | 2023-10-15 09:20 | ED Physician Documentation ---
PD HPI HEENT - Stated complaint Stated Complaint: RT EAR PX - Chief complaint Chief Complaint: Heent - History obtained from History obtained from: Patient - Additional information Additional information: Patient is a 48-year-old female with URI symptoms of cough and congestion for the past 1 week and developing right ear pain starting last night. She reports having a fullness feeling in her right ear for the last several days but the pain became much worse last night. She has not taken any medications for it today. Denies any known sick contacts. No recent travel. No abnormal drainage from the ear. Review of Systems Constitutional: denies: Fever Ears: reports: Ear pain Nose: reports: Congestion Cardiac: denies: Chest pain / pressure Respiratory: denies: Dyspnea GI: denies: Abdominal Pain PD PAST MEDICAL HISTORY - Past Medical History Past Medical History: Yes Cardiovascular: Murmur Respiratory: None Neuro: None Endocrine/Autoimmune: None GI: None [employer] CR[employer]ING: None : None HEENT: None Psych: None Musculoskeletal: Other Derm: None - Past Surgical History Past Surgical History: No Ortho: Carpal Tunnel surgery, Other /[employer]IMPING: section, Breast implants, Other - Present Medications Home Medications: Ambulatory Orders Medication Instructions Recorded Confirmed Amox/Clav 875/125 [Augmentin] 1 each PO Q12H #14 tablet 10/15/23 Fluticasone [Flonase] 1 sprays ELVIS BID PRN #16 gm 10/15/23 - Allergies Allergies/Adverse Reactions: Allergies Allergy/AdvReac Type Severity Reaction Status Date / Time No Known Drug Allergies Allergy Verified 10/15/23 08:28 - Social History Does the pt smoke?: No Smoking Status: Never smoker Does the pt drink ETOH?: Yes Does the pt have substance abuse?: No - Immunizations Immunizations are current?: Yes - POLST Patient has POLST: No PD ED PE NORMAL - General General: Alert and oriented X 3, No acute distress, Well developed/nourished - HEENT HEENT: Atraumatic, Moist mucous membranes, Pharynx benign. No: Ears normal (Left TM is intact and normal, right TM is erythematous, bulging, dull) - Neck Neck: Supple, no meningeal sign - Cardiac Cardiac: RRR, Strong equal pulses - Respiratory Respiratory: No respiratory distress, Clear bilaterally - Derm Derm: Warm and dry - Neuro Neuro: Normal speech Results - Vitals Vitals: Vital Signs - 24 hr 10/15/23 08:29 Temperature 36 C L Heart Rate 77 Respiratory 16 Rate Blood Pressure 144/82 H O2 Saturation 100 Oxygen O2 Source Room air PD Medical Decision Making - ED course ED course: Patient with recent URI symptoms now with right ear pain. On exam has findings consistent with acute otitis media. Patient agreeable to antibiotics. Also recommend Flonase to help with congestion. Patient counseled on treatment plan as well as concerning symptoms to return for. Departure - Departure Disposition: 01 Home, Self Care Clinical Impression: Right otitis media, Upper respiratory infection Condition: Stable Instructions: ED Otitis Media Acute Adult Prescriptions: Amox/Clav 875/125 [Augmentin] 1 each PO Q12H #14 tablet Fluticasone [Flonase] 1 sprays ELVIS BID PRN #16 gm PRN Reason: Nasal Congestion Comments: You have an ear infection to the right ear. I have sent prescriptions for an antibiotic and a nasal decongestant to [facility] in [place]. Please continue with acetaminophen or ibuprofen as needed for pain. Return to the emergency department with any worsening symptoms. Forms: PCP List Discharge Date/Time: 10/15/23 09:26
== END 2023-10-15 09:26 | disposition home or self-care (01) ==
LOC: ED 08:21
DX: H66.91 Otitis media, unspecified, right ear (principal); J06.9 Acute upper respiratory infection, unspecified
CPT/HCPCS: 99282; 99283